=== PATIENT | male | born 2000 | race Two or more races ===

== ENCOUNTER 2024-01-24 08:42 | Emergency (ER) | payer BC ==
[~2024-01-24] VITALS: Ht 172.7 cm; Wt 78.0 kg
[2024-01-24 09:10] VITALS: TEMP 98.6
[2024-01-24] MEDS ORDERED: IBUPROFEN 600 MG TABLET ONE (09:19)
[2024-01-24] MEDS ORDERED: AMOXICILLIN TRIHYDRATE 250 MG CAPSULE ONE (09:19)
[2024-01-24] MEDS ORDERED: AMOX500C2 PO (09:22)
[2024-01-24] MEDS: AMOXICILLIN TRIHYDRATE 500 MG CAPSULE PO ONE (09:23)
[2024-01-24] MEDS: IBUPROFEN 600 MG TABLET PO ONE (09:23)
[2024-01-24 09:30] VITALS: BP 126/80; O2SAT 99
== END 2024-01-24 09:34 | disposition home or self-care (01) ==
LOC: ER 08:45
DX: J02.9 Acute pharyngitis, unspecified (principal)